=== PATIENT | female | born 2005 | race Two or more races ===

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

== ENCOUNTER 2023-06-30 10:08 | Emergency (ER) | payer MEDICAID ==
[~2023-06-30] VITALS: Ht 160 cm; Wt 50.9 kg
[2023-06-30 11:49] VITALS: BP 135/50; PULSE 73; RESP 18; TEMP 99; O2SAT 98
== END 2023-06-30 12:07 | disposition left against medical advice (07) ==
LOC: ER 10:08
DX: M79.631 Pain in right forearm (principal); M54.2 Cervicalgia; M79.642 Pain in left hand; Z53.21 Procedure and treatment not carried out due to patient leaving prior to being seen by health care provider; V43.62XA Car passenger injured in collision with other type car in traffic accident, initial encounter; Y93.89 Activity, other specified; Y92.410 Unspecified street and highway as the place of occurrence of the external cause; Y99.8 Other external cause status